=== PATIENT | female | born 1925 | race Caucasian/White ===

== ENCOUNTER → 2016-08-17 | Outpatient (CLI) | payer MEDICARE ==
[2016-08-17 14:45] LABS: Blood Urea Nitrogen 25 mg/dL (7-17); Non-African American GFR(MDRD) >60 (>60 ml/min/1.73 sqM)
--- NOTE | 2016-08-20 08:17 | CT ---
EXAMINATION TYPE: CT chest w con DATE OF EXAM: 08/17/2016 4:10 PM COMPARISON: Prior chest x-ray 30 July 2016 HISTORY: History of lung cancer with brain tumor. Abnormal chest xray. CT DLP: 332.00 mGycm Automated exposure control for dose reduction was used. CONTRAST: CT scan of the chest is performed with IV Contrast, patient injected with 80 mL of Omnipaque 300. FINDINGS: LUNGS: There is a soft tissue mass in the posterior right lung base measuring approximately 8.7 x 7.4 x 10.8 cm with heterogeneous density and extension involving the bulk of the right lower lobe. Under lying emphysematous changes present. Extensive emphysematous changes are present. No pleural or peric ardial effusion. 7 atelectatic changes or scarring suspected at the lingula. There is a sizable intra thoracic stomach, hiatal hernia present. There may be some right hilar adenopathy, there is no medias tinal or axillary adenopathy. Lesion AORTA: No additional significant abnormality is seen. OTHER: No adrenal mass. Left cortical renal cyst is present. There are coronary artery calcification s. IMPRESSION: Findings suggest bronchogenic carcinoma. Additional findings above.
== END | disposition home or self-care (01) ==
LOC: RADCTMAIN 14:01
PROVIDERS: ATTEND Internal Medicine Critical Care Medicine
DX: R22.2 Localized swelling, mass and lump, trunk (principal)
CPT/HCPCS: 82565; 84520; 71260; Q9967

== ENCOUNTER 2016-08-18 09:28 | Day surgery (SDC) | payer MEDICARE ==
[2016-08-13 15:06] VITALS: BMI 19.5
[~2016-08-18 09:28] MED LIST: ALBUTEROL NEB (CONC) 2.5 MG/0.5 ML INHALATION ONE; ATROPINE SULFATE 0.4 MG/ML 1 ML VIAL IM ONE; LACTATED RINGERS 1,000 ML IV ONE; LACTATED RINGERS 1,000 ML IV SCH; LIDOCAINE 2% (PF) 20 MG/ML 10ML INHALATION ONE
[2016-08-18 10:25] VITALS: RESP 16; TEMP 97.9
[2016-08-18] MEDS ORDERED: LIDOCAINE 1% 20 ML VIAL (10MG/ML) FOR IV START SQ ONE (10:27)
[2016-08-18] MEDS ORDERED: LIDOCAINE 1% INJ 10MG/ML (20 ML MDV) ONE (11:07)
[2016-08-18] MEDS ORDERED: fentaNYL (PF) 50 MCG/ML 2 ML AMP ONE (11:07)
[2016-08-18] MEDS ORDERED: KETAMINE 10 MG/ML 20 ML VIAL ONE (11:07)
[2016-08-18] MEDS ORDERED: PROPOFOL 10 MG/ML 20 ML VIAL IV ONE (11:07)
[2016-08-18] MEDS ORDERED: MIDAZOLAM 2 MG/2 ML VIAL ONE (11:07)
[2016-08-18] MEDS ORDERED: LIDOCAINE 2% INJ 20 MG/ML INTRATRACH ONE (11:40)
--- NOTE | 2016-08-18 12:02 | XR ---
EXAMINATION TYPE: XR chest 1V portable DATE OF EXAM: 08/18/2016 11:58 AM COMPARISON: CT chest 08/17/2016 INDICATION: Biopsy right lung lesion TECHNIQUE: Single frontal view of the chest is obtained. FINDINGS: The heart size is normal. The pulmonary vasculature is normal. There is a large density at the posterior right lung base. No pneumothorax is evident. Mild increased lung markings are in the left perihilar region. IMPRESSION: 1. No pneumothorax post biopsy.
--- NOTE | 2016-08-18 12:05 | FL ---
Fluoroscopy INDICATION: Pain, bronchoscopy FINDINGS: Fluoroscopy time: 2 minutes 19 seconds. Images obtained: 3. IMPRESSIONS: 1. Documentation of fluoroscopy.
[2016-08-18 12:12] VITALS: BP 140/76; PULSE 75
[2016-08-18 15:03] LABS: RBC, Body Fluid 571500 /uL
--- NOTE | 2016-08-18 21:54 | PCN ---
PROCEDURE: Bronchoscopy, airway examination with therapeutic lavage, bronchoalveolar lavage, brushes right lower lobe, biopsies right lower lobe, washes right lower lobe. PREOPERATIVE DIAGNOSIS: Lung cancer. POSTOPERATIVE DIAGNOSIS: Lung cancer There was informed consent. There was universal timeout. ( )LEA, provided IV conscious sedation. The patient's procedure was done in Room #1. After the patient was adequately sedated and being fully monitored, the bronchoscope was inserted through the right nostril. It passed through the right nasopharynx into the oropharynx. It passed into the hypopharynx. The hypopharyngeal structures all appeared normal, including anterior commissure, true cords, false cords, arytenoids, piriform sinuses, right and left valleculae and epiglottis. After topicalization, the bronchoscope was pushed through the glottic opening into the trachea. Trachea appeared normal. Tracheal henry was sharp. The left side was topicalized. The left upper lobe was evaluated first. It appeared that the patient had previously had a left upper lobectomy. I am not sure why. I do not think I got that in the history when I saw her in the office. Anyway, we could see some samson or clamps in the area of the left upper lobe, which seemed to end in a blind pouch. The lingula was intact. The left lower lobe also was intact with its 4 segments. Everything else on the left side looked normal. On the right side, the right upper lobe and its 3 segments appeared normal. Interestingly, it appeared that the right middle lobe somewhat distorted. The opening was very narrow. I do not know if it represented malignancy or not. We did do a brush in this area. It was rotated counterclockwise almost to the midline. Anyway, again a brush was done in this area. Finally, under fluoroscopic guidance, brushes and biopsies were done in the right lower lobe. We mostly took samples from the anterior and lateral segments of the right lower lobe. Patient seemed to tolerate the procedure well. There was minimal bleeding. We did washes in the right lower lobe. The patient tolerated that well. The samples will be sent to laboratory for analysis. No additional recommendations are made. Will wait for the results. The patient will be recovered.
== END 2016-08-18 12:56 | disposition home or self-care (01) ==
LOC: ORWHC2ENDO 09:28
PROVIDERS: ATTEND Internal Medicine Critical Care Medicine
DX: R91.8 Other nonspecific abnormal finding of lung field (principal); E78.5 Hyperlipidemia, unspecified; K21.9 Gastro-esophageal reflux disease without esophagitis; I10 Essential (primary) hypertension; J44.9 Chronic obstructive pulmonary disease, unspecified; F17.200 Nicotine dependence, unspecified, uncomplicated; Z79.82 Long term (current) use of aspirin; Z79.51 Long term (current) use of inhaled steroids; Z79.52 Long term (current) use of systemic steroids; Z79.899 Other long term (current) drug therapy; Z88.1 Allergy status to other antibiotic agents; Z88.0 Allergy status to penicillin; Z88.2 Allergy status to sulfonamides
CPT/HCPCS: 94640; 87798 ×4; 87496; 87498; 87529 ×2; 88104; 88108; 88305; 89050; 88342; 87252; 87502 ×2; 88341; 87070; 87205; 87116; 87102; 87206; 71010; 31628; 31623; J2001 ×3; J2250; J0461; J3010; J2704; 31624; 99153

== ENCOUNTER → 2016-08-21 | Outpatient (CLI) | payer MEDICARE ==
--- NOTE | 2016-08-23 15:53 | PE ---
Nuclear medicine PET/CT HISTORY: Lung carcinoma Patient received 12.3 mCi F-18 FDG intravenously. Delayed scanning performed from the skull base to t he mid thighs. Localization and attenuation correction CT scan was performed. Correlation to chest CT 17 August 2016 Neck and chest: There is a soft tissue mass in the right lower lobe with a cavitary appearance 2.2 cm , this may be a daughter lesion to a larger lesion in the right lower lobe which measures approximate ly 9.4 cm and shows associated hypermetabolic uptake peripherally, SUV 8-9. Subcarinal, right hilar a denopathy is present, SUV is 4.6, 5 respectively. Abdomen pelvis: Some uptake present along the posterior aspect of the liver may be due to gastric mot ion, difficult to exclude other liver lesion, SUV at 5.7. No adrenal mass. No retroperitoneal adenopa thy or other suspicious hypermetabolic uptake. Uptake within the splenic flexure is likely physiologi c. IMPRESSION: Findings compatible with bronchogenic carcinoma. Difficult to exclude liver mass on the b asis of this exam. Additional findings above.
== END | disposition home or self-care (01) ==
LOC: RADPETMAIN 11:56
PROVIDERS: ATTEND Internal Medicine Hematology & Oncology
DX: C34.31 Malignant neoplasm of lower lobe, right bronchus or lung (principal)
CPT/HCPCS: 78815; A9552

== ENCOUNTER → 2016-08-28 | Outpatient (CLI) | payer MEDICARE ==
--- NOTE | 2016-08-28 11:01 | MR ---
EXAMINATION TYPE: MR brain wo/w con DATE OF EXAM: 08/28/2016 10:16 AM COMPARISON: CT 07/30/[address] 08/21/2016. HISTORY: 89-year-old female with brain Lesion TECHNIQUE: Multiplanar, multisequence images of the brain and brainstem were acquired before and aft er administration of 9 mL IV MultiHance. Diffusion weighted imaging is performed. FINDINGS: There is a heterogeneously enhancing round lesion at the [place]-white matter interface of the posterior right frontal lobe measuring 1.3 cm. This lesion shows mild referral restricted diffusion. There is prominent surrounding vasogenic edema extending throughout the right frontal lobe and to the frontopa rietal junction. This results in mass effect with minimal 2 mm of leftward midline shift. Background of mild to moderate scattered T2 bright white matter change in both cerebral hemispheres l ocated in the subcortical, deep, and periventricular white matter as well as the bilateral paramedian marta. However, no additional suspicious enhancing lesions are seen. Dural venous sinuses are patent. There is moderate age-related supratentorial volume loss and mild secondary prominence of the ventric ular system. No evidence for acute infarction, effacement of basal cisterns, or extra-axial fluid collection. Midline structures otherwise demonstrate normal morphology. The craniocervical junction is normal. The visualized sinuses are clear and the globes are intact. IMPRESSION: 1. Enhancing 1.3 cm lesion at the [place]-white matter interface of the posterior right frontal lobe wit h moderate surrounding vasogenic edema causing minimal 2 mm of leftward midline shift. Findings sugge stive of brain metastasis. 2. There is [id number] scattered burden of chronic small vessel ischemic disease without any ad ditional suspicious intracranial enhancement. 3. Moderate age-related cerebral atrophy.
== END | disposition home or self-care (01) ==
LOC: RADMRIMAIN 09:21
PROVIDERS: ATTEND Internal Medicine Hematology & Oncology
DX: G93.9 Disorder of brain, unspecified (principal); R90.82 White matter disease, unspecified; I67.82 Cerebral ischemia; G31.9 Degenerative disease of nervous system, unspecified
CPT/HCPCS: 70553; A9577